=== PATIENT | female | born 1965 | race African-American/Black ===

== ENCOUNTER → 2016-09-23 | Outpatient (CLI) | payer BC ==
[~2016-09-23] VITALS: Ht 160 cm; Wt 92.1 kg
[~2016-09-23] MED LIST: AMLO10TA2 PO; MIRA33504 PO; NS 1,000 ML IV SCH; OMEP40CA2 PO; PROPOFOL 200 MG/20 ML VIAL As Ordered ONE
--- NOTE | 2016-09-23 11:58 | ROOR ---
Patient Name: Isis Marroquin Procedure Date: 09/23/2016 11:42 AM Date of : 1965 Age: 51 Room: [facility] Gender: Female Note Status: Finalized Procedure: Colonoscopy Indications: Screening for colorectal malignant neoplasm Providers: Placido WEST MD Referring MD: Sidney Casey MD Requesting Provider: Medicines: Monitored Anesthesia Care Complications: No immediate complications. Procedure: Pre-Anesthesia Assessment: - The heart rate, respiratory rate, oxygen saturations, blood pressure, adequacy of pulmonary ventilation, and response to care were monitored throughout the procedure. The Colonoscope was introduced through the anus and advanced to the cecum, identified by appendiceal orifice and ileocecal valve. The colonoscopy was performed without difficulty. The patient tolerated the procedure well. The quality of the bowel preparation was good. Findings: The perianal and digital rectal examinations were normal. Internal hemorrhoids were found during retroflexion. The hemorrhoids were medium-sized. The entire examined colon appeared normal on direct and retroflexion views. (Exam: Complete, Prep: Good or Excellent.) Impression: - Internal hemorrhoids. - The entire colon is normal on direct and retroflexion views. - No specimens collected. Recommendation: - Repeat colonoscopy in 10 years for screening purposes. Placido West MD Placido WEST MD 09/23/2016 11:57:31 AM This report has been signed electronically. Number of Addenda: 0 Note Initiated On: 09/23/2016 11:42 AM Estimated Blood Loss: Estimated blood loss: none.
[2016-09-23 12:20] VITALS: BP 136/87
== END | disposition home or self-care (01) ==
LOC: M OPP 09:57
PROVIDERS: ATTEND Internal Medicine Gastroenterology
DX: Z12.11 Encounter for screening for malignant neoplasm of colon (principal); K64.8 Other hemorrhoids; I10 Essential (primary) hypertension; R12 Heartburn; Z78.0 Asymptomatic menopausal state; Z80.51 Family history of malignant neoplasm of kidney; Z79.899 Other long term (current) drug therapy
CPT/HCPCS: 99156; G0121

== ENCOUNTER → 2017-05-14 | Outpatient (REF) | payer BC ==
[~2017-05-14] MED LIST changes: -NS 1,000 ML IV SCH; -PROPOFOL 200 MG/20 ML VIAL As Ordered ONE
[2017-05-14 17:54] LABS: MEAN CORPUSCULAR HEMOGLOBIN 26.7 pg (27.0-33.0); MEAN CORPUSCULAR VOLUME 83.3 fl (80.0-96.0); PLATELET COUNT, AUTOMATED 281 10^3/uL (150-450); RED CELL DISTRIBUTION WIDTH 13.6 % (11.5-14.5); WHITE BLOOD COUNT 6.2 10^3/uL (4.0-10.0)
[2017-05-14 18:38] LABS: ALBUMIN/GLOBULIN RATIO 0.95 (1.00-1.93); ALKALINE PHOSPHATASE 85 U/L (45-117); ALT/SGPT 35 U/L (12-78); ANION GAP 8 MEQ/L (8-16); AST/SGOT 15 U/L (15-37); BILIRUBIN,TOTAL 0.3 MG/DL (0.2-1.0); BLOOD UREA NITROGEN 8 MG/DL (7-18); CALCIUM LEVEL 9.3 MG/DL (8.5-10.1); CARBON DIOXIDE LEVEL 28 MEQ/L (21-32); CHLORIDE LEVEL 105 MEQ/L (98-107); FREE T4 1.31 NG/DL (0.76-1.46); GLOMERULAR FILTRATION RATE > 60.0 (>51); GLUCOSE, FASTING 130 MG/DL (70-105); POTASSIUM SERUM 4.4 MEQ/L (3.5-5.1); SODIUM LEVEL 141 MEQ/L (136-145); TOTAL PROTEIN 8.2 GM/DL (6.4-8.2)
[2017-05-19 07:25] LABS: HIV-1 RNAby PCR <20
== END ==
LOC: M SFHCLERA 14:55
PROVIDERS: ATTEND Family Medicine
DX: Z21 Asymptomatic human immunodeficiency virus [HIV] infection status (principal)
CPT/HCPCS: 80053; 84439; 84443; 85027; 86705; 86709; 86780; 86803; 87340; 87389; 87491; 87591; G0432

== ENCOUNTER → 2017-05-29 | Outpatient (CLI) | payer BC ==
--- NOTE | 2017-06-01 10:09 | REPMRS ---
Patient History The patient states she has not had a clinical breast exam in over a year. No known family history of cancer. Digital Mammo Screening Bilat: May 29, 2017 - Exam #: [id number] Bilateral CC and MLO view(s) were taken. Technologist: Amaris Yun, Technologist Prior study comparison: September 28, 2015, digital bilateral screening mammo, performed at [facility]. FINDINGS: There are scattered fibroglandular densities. There has been no change in the appearance of the mammogram from the prior studies. There is a mild amount of scattered fibroglandular density which is fairly symmetric. There is no interval development of dominant mass, architectural distortion, or clustered microcalcification suggestive of malignancy. ASSESSMENT: BI-RADS/ACR category 1 mammogram. Negative. Recommendation Routine screening mammogram in 1 year (for women over age 40). This mammogram was interpreted with the aid of an FDA-approved computer-aided dectection system. Electronically Signed By: Gregory Marie MD 06/01/17 [id number]
== END ==
LOC: M RAD 14:46
PROVIDERS: ATTEND Transplant Surgery
DX: Z12.31 Encounter for screening mammogram for malignant neoplasm of breast (principal)

== ENCOUNTER → 2017-06-05 | Outpatient (REF) | payer BC ==
[2017-06-08 00:06] LABS: Eosinophils 1 % (Not Estab.); HCT 41.6 % (34.0-46.6); Monocytes 6 % (Not Estab.); Neutrophils 54 % (Not Estab.); WBC 4.6 x10E3/uL (3.4-10.8)
[2017-06-08 11:27] LABS: HEPATITIS B SURFACE ANTIBODY NEGATIVE (POSITIVE)
[2017-06-09 08:11] LABS: TOXOPLASMA IgG ABY <3.0 IU/mL (0.0-7.1)
== END ==
LOC: M SFHCPLAZ 12:00
PROVIDERS: ATTEND Internal Medicine Infectious Disease
DX: Z21 Asymptomatic human immunodeficiency virus [HIV] infection status (principal); R76.8 Other specified abnormal immunological findings in serum

== ENCOUNTER → 2017-06-25 | Outpatient (REF) | payer BC | LOC: M SFHCLERA 14:14 | PROVIDERS: ATTEND Family Medicine | DX: E05.90 Thyrotoxicosis, unspecified without thyrotoxic crisis or storm (principal); R73.03 Prediabetes ==

== ENCOUNTER → 2017-08-24 | Outpatient (REF) | payer BC ==
[2017-08-24 15:53] LABS: HEPATITIS B SURFACE ANTIBODY NEGATIVE (POSITIVE)
[2017-08-24 15:55] LABS: IMMUNOGLOBULIN G 1770 MG/DL (681-1648); IMMUNOGLOBULIN M 55.5 MG/DL (40-230)
== END ==
LOC: M SFHCPLAZ 13:30
DX: Z86.19 Personal history of other infectious and parasitic diseases (principal); Z78.9 Other specified health status
CPT/HCPCS: 86706

== ENCOUNTER → 2017-09-02 | Outpatient (REF) | payer BC | LOC: M SFHCLERA 11:41 | DX: R76.8 Other specified abnormal immunological findings in serum (principal); R73.02 Impaired glucose tolerance (oral); E05.90 Thyrotoxicosis, unspecified without thyrotoxic crisis or storm; Z53.9 Procedure and treatment not carried out, unspecified reason ==

== ENCOUNTER → 2017-09-16 | Outpatient (REF) | payer BC ==
[2017-09-16 17:16] LABS: FREE T4 0.94 NG/DL (0.76-1.46)
[2017-09-16 19:40] LABS: ESTIMATED AVERAGE GLUCOSE 137 MG/DL (60-110); HEMOGLOBIN A1c 6.4 %
[2017-09-19 00:07] LABS: HBV HBV DNA not detected IU/mL (.)
== END ==
LOC: M SFHCLERA 11:03
DX: R76.8 Other specified abnormal immunological findings in serum (principal); R73.02 Impaired glucose tolerance (oral); E05.90 Thyrotoxicosis, unspecified without thyrotoxic crisis or storm
CPT/HCPCS: 84443